=== PATIENT | female | born 1970 ===

== ENCOUNTER 2018-05-05 10:38 | Emergency (ER) | payer OTHER ==
[~2018-05-05] VITALS: Ht 162.6 cm; Wt 136.1 kg
[~2018-05-05 10:38] MED LIST: B Complex1 EAC2; DULO30; ERGO400; HYDACE5 PO; Multiple Vitam1 EAC1; PRESERVISION A1 EACH; RXHYDACE PO; Vitamin C100 M1
[2018-05-05 10:58] LABS: Source, Urine Clean Catch
[2018-05-05 11:01] LABS: Appearance, Urine Hazy (Clear); Bilirubin, Urine Neg (Neg); Blood, Urine Neg (Neg); Color, Urine Yellow (P-Yellow); Glucose Qualitative, Urine Neg (Neg); Ketones, Urine Neg (Neg); Leukocyte Esterase, Urine 1+ (Neg); Nitrite, Urine Pos (Neg); Protein, Urine Neg (Neg); Specific Gravity, Urine 1.025 (1.003-1.022); Urobilinogen, Urine NORM (Normal)
[2018-05-05 11:19] LABS: Bacteria Mod /hpf; Red Blood Cells, Urine Not Seen /hpf (0-2); Squamous Epithelial Cells Few /hpf (Few); White Blood Cells, Urine 0-2 /hpf (0-5)
[2018-05-05] MEDS ORDERED: Cefpodoxime Pr100 MG PO (11:28)
[2018-05-05] MEDS ORDERED: Robaxin-750750 MG PO (11:28)
[2018-05-05] MEDS ORDERED: LIDO700A20 TOP (11:28)
[2018-05-05] MEDS ORDERED: KETO10 PO (11:28)
== END 2018-05-05 11:34 | disposition home or self-care (01) ==
LOC: ER 10:38
PROVIDERS: Physician Assistant
DX: N39.0 Urinary tract infection, site not specified (principal); M62.838 Other muscle spasm; Z88.8 Allergy status to other drugs, medicaments and biological substances
CPT/HCPCS: 81001; 87077; 87086; 87186; 96372; 99283-25; J1885